=== PATIENT | female | born 1970 | race Caucasian/White ===

== ENCOUNTER 2019-07-09 08:00 | Inpatient (IN) | payer OTHER ==
[2019-09-30 10:37] VITALS: BMI 28.3
[2019-10-01] MEDS ORDERED: DEXAMETHASONE SOD PHOSPHATE/PF 10 MG/ML SDV ONE (07:49)
[2019-10-01] MEDS ORDERED: SODIUM CHLORIDE 0.9% P/F 10 ML VIAL IJ ONE (07:54)
[2019-10-01] MEDS ORDERED: MIDAZOLAM HCL 2 MG/2 ML SINGLE DOSE VIAL ONE ×2 (07:54)
[2019-10-01] MEDS ORDERED: HYDROmorphone HCl 2 MG/ML VIAL ONE (08:27)
[2019-10-01] MEDS ORDERED: ceFAZolin 2 GRAM PREMIX BAG IVPB ONE (08:30)
[2019-10-01] MEDS ORDERED: NEOSTIGMINE METHYLSULFATE 0.5 MG/ML - 10 ML MDV ONE (09:17)
[2019-10-01] MEDS ORDERED: BENZOIN/ALOE VERA/STORAX/TOLU 58 ML BOTTLE ONE (09:30)
[2019-10-01] MEDS ORDERED: CEFAZOLIN 1 GM in DEXTROSE 5%-WATER - 50 ML IVPB SCH (10:00)
[2019-10-01] MEDS: DEXTROSE 5%-LACTATED RINGERS 1,000 ML IV SCH ×3 (10:17→23:54)
[2019-10-01] MEDS ORDERED: ONDANSETRON 4 MG/2 ML VIAL IVPUSH PRN (10:25)
[2019-10-01] MEDS ORDERED: ACETAMINOPHEN 1000 MG/100 ML VIAL (NON FORMULARY) IVPB ONE (10:25)
[2019-10-01] MEDS ORDERED: ACETAMINOPHEN INJECTION 100 ML IVPB ONE (10:58)
[2019-10-01] MEDS ORDERED: ONDANSETRON 4 MG/2 ML VIAL ONE (12:47)
[2019-10-01] MEDS ORDERED: DEXTROSE 5%-WATER - 50 ML IVPB ONE ×2 (15:47→23:44)
[2019-10-01] MEDS ORDERED: ceFAZolin SODIUM 1 GM VIAL ONE ×2 (15:47→23:44)
[2019-10-01] MEDS: CEFAZOLIN 1 GM in DEXTROSE 5%-WATER - 50 ML IVPB SCH ×2 (15:52→23:48)
[2019-10-01] MEDS: oxyCODONE HCL 5 MG TABLET PO PRN ×2 (15:55→22:51)
[2019-10-01] MEDS: IBUPROFEN 800 MG/8 ML IJ IVPB PRN (18:12)
[2019-10-02] MEDS: oxyCODONE HCL 5 MG TABLET PO PRN ×3 (04:48→21:36)
[2019-10-02] MEDS: IBUPROFEN 800 MG/8 ML IJ IVPB PRN (16:13)
[2019-10-02] MEDS ORDERED: ACETAMINOPHEN 325 MG TABLET (FP) PO PRN (17:15)
[2019-10-03] MEDS: oxyCODONE HCL 5 MG TABLET PO PRN ×2 (02:03→08:09)
[2019-10-03 10:03] VITALS: BP 100/64; PULSE 84; TEMP 98.8
== END 2019-10-03 11:42 | disposition home or self-care (01) | DRG 513 ==
LOC: J2C 10-01 06:34 → J6S 10-01 13:13
PROVIDERS: ADMIT Obstetrics & Gynecology; ATTEND Obstetrics & Gynecology
PROC: 0UT70ZZ Resection of Bilateral Fallopian Tubes, Open Approach (ICD-10-PCS; 2019-10-01)
PROC: 0UT90ZL Resection of Uterus, Supracervical, Open Approach (ICD-10-PCS; principal; 2019-10-01 08:00)
DX: N80.0 Endometriosis of uterus (principal); R10.2 Pelvic and perineal pain; D25.1 Intramural leiomyoma of uterus; N84.0 Polyp of corpus uteri; N80.2 Endometriosis of fallopian tube
CPT/HCPCS: 36415; 84703; 86850; 86900; 86901; 88307-TC; 94010; 94760; J0131